=== PATIENT | female | born 1995 ===

== ENCOUNTER 2024-11-24 10:10 | Outpatient (CLI) | payer OTHER | END 2024-11-24 10:12 | disposition home or self-care (01) | LOC: PRENATAL 10:10 | PROVIDERS: ATTEND Obstetrics & Gynecology Maternal & Fetal Medicine | DX: O26.849 Uterine size-date discrepancy, unspecified trimester (principal); O99.280 Endocrine, nutritional and metabolic diseases complicating pregnancy, unspecified trimester; O34.219 Maternal care for unspecified type scar from previous cesarean delivery; O10.019 Pre-existing essential hypertension complicating pregnancy, unspecified trimester; Z36.0 Encounter for antenatal screening for chromosomal anomalies; Z14.8 Genetic carrier of other disease; Z3A.15 15 weeks gestation of pregnancy ==

== ENCOUNTER 2024-12-22 11:31 | Outpatient (CLI) | payer OTHER | END 2024-12-22 11:32 | disposition home or self-care (01) | LOC: PRENATAL 11:31 | PROVIDERS: ATTEND Obstetrics & Gynecology Maternal & Fetal Medicine | DX: O44.00 Complete placenta previa NOS or without hemorrhage, unspecified trimester (principal); O99.280 Endocrine, nutritional and metabolic diseases complicating pregnancy, unspecified trimester; Z3A.19 19 weeks gestation of pregnancy ==

== ENCOUNTER → 2025-03-22 14:37 | Outpatient (CLI) | payer OTHER | END | disposition home or self-care (01) | LOC: PRENATAL 14:37 | PROVIDERS: ATTEND Obstetrics & Gynecology Maternal & Fetal Medicine | DX: O26.849 Uterine size-date discrepancy, unspecified trimester (principal); O36.8199 Decreased fetal movements, unspecified trimester, other fetus; O99.280 Endocrine, nutritional and metabolic diseases complicating pregnancy, unspecified trimester; Z3A.33 33 weeks gestation of pregnancy ==

== ENCOUNTER → 2025-04-22 12:54 | Outpatient (CLI) | payer OTHER | END | disposition home or self-care (01) | LOC: PRENATAL 12:54 | PROVIDERS: ATTEND Obstetrics & Gynecology Maternal & Fetal Medicine | DX: O26.849 Uterine size-date discrepancy, unspecified trimester (principal); O36.8130 Decreased fetal movements, third trimester, not applicable or unspecified; O99.280 Endocrine, nutritional and metabolic diseases complicating pregnancy, unspecified trimester; O24.319 Unspecified pre-existing diabetes mellitus in pregnancy, unspecified trimester; Z3A.35 35 weeks gestation of pregnancy ==